=== PATIENT | male | born 1995 | race African-American/Black ===

== ENCOUNTER 2017-11-29 01:39 | Emergency (ER) | payer SELFPAY ==
[~2017-11-29] VITALS: Ht 167.6 cm; Wt 86.2 kg
[~2017-11-29 01:39] MED LIST: ALBUTEROL SULF8.5 GM INH; ALBUTEROL2.5 MG/3 M HHN; AMOX TR-K CLV1 EAC2 ORAL; AZITHROMYCIN250 MG ORAL; CIPRO500 MG PO; FLAGYL500 MG ORAL; GUAIFENESIN-CO118 M1 ORAL; IBUPROFEN600 MG ORAL; MUCINEX600 MG PO; NAPROSYN500 M1 ORAL; ONDANSETRON ODT4 MG ORAL; PHENERGAN6.25 MG/5 ORAL; PREDNISONE20 MG ORAL; PREDNISONE50 MG ORAL; PROMETHAZINE-C118 M1 ORAL; ROBITUSSIN DM5 ML GT; TRAZODONE HCL50 MG ORAL; ZITHROMAX250 MG ORAL; ZYRTEC10 MG ORAL
[2017-11-29] MEDS ORDERED: CLOTRIMAZOLE15 GM TOPIC (02:00)
--- NOTE | 2017-11-29 02:01 | Emergency Room Report ---
History of Present Illness General Chief Complaint: Lower Extremity Injury Source: Patient Present Illness HPI Is a 21-year-old male with no past medical history. He presents with chief complaint of bilateral feet pain but mostly left side. He said this attributed to his foot fungus. He said he noticed about 4 weeks now. 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 Denies any fever chills but no nausea no vomiting. Nothing made it better or worse. Has not seen his doctor for this. Denies any other complaint. Pain is 7 out of 10. Allergies: Coded Allergies: No Known Allergies (Unverified , 12/09/12) Patient History Past Medical History: see triage record, old chart reviewed Past Surgical History: none Pertinent Family History: none Social History: Denies: smoking Immunizations: other Reviewed Nursing Documentation: PMH: Agreed; PSxH: Agreed Nursing Documentation-PMH Hx Asthma: Yes Review of Systems Eye: Denies: eye pain, blurred vision ENT: Denies: ear pain, nose congestion, throat swelling Respiratory: Denies: cough, shortness of breath Cardiovascular: Denies: chest pain, palpitations Gastrointestinal: Denies: abdominal pain, diarrhea, nausea, vomiting Musculoskeletal: Denies: back pain, joint pain Skin: Denies: rash Neurological: Denies: headache, numbness Endocrine: Denies: increased thirst, increased urine Hematologic/Lymphatic: Denies: easy bruising All Other Systems: negative except mentioned in HPI Physical Exam Vital Signs Date Time Temp Pulse Resp B/P (MAP) Pulse Ox O2 Delivery O2 Flow Rate FiO2 11/29/17 01:42 98.5 97 18 131/89 94 Room Air 98.4 vitals normal Sp02 EP Interpretation: reviewed, normal General Appearance: well appearing, no apparent distress, alert Head: normocephalic, atraumatic Eyes: bilateral eye PERRL, bilateral eye EOMI ENT: hearing grossly normal, normal pharynx Neck: full range of motion, supple, no meningismus Respiratory: chest non-tender, lungs clear, normal breath sounds Cardiovascular #1: regular rate, rhythm, no murmur Gastrointestinal: normal bowel sounds, non tender, no mass, no organomegaly, no bruit, non-distended Musculoskeletal: back normal, gait/station normal, normal range of motion, other - Bilateral feet with onychomycosis of the nails. He also has flaky skin with hyperkeratosis secondary to constant trauma and poor fitting shoes. No blistering. Psychiatric: mood/affect normal Skin: warm/dry Medical Decision Making Diagnostic Impression: Primary Impression: Onychomycosis ER Course Patient with me, courses. Explained to the patient that this treatment require months to years. He need to see his primary care doctor because he'll probably need oral medication and blood work for monitoring. No evidence of any bacterial infection. We'll discharge home. Last Vital Signs Date Time Temp Pulse Resp B/P (MAP) Pulse Ox O2 Delivery O2 Flow Rate FiO2 11/29/17 01:42 98.5 97 18 131/89 94 Room Air 98.4 Status: unchanged Disposition: HOME, SELF-CARE Condition: Stable Scripts Clotrimazole* (LOTRIMIN*) 15 Gm Cream..g. 1 APPLIC TOPIC TWICE A DAY, #60 GM Prov: Steven Carreno MD 11/29/17 Additional Instructions: Follow-up with your doctor in a week. Now fungus usually take months to years to treat. You may need oral medication. Follow-up with your DrOctavio for this. Return of worse. Steven Carreno MD Nov 29, 2017 02:01
[2017-11-29 02:12] VITALS: BP 131/89
== END 2017-11-29 02:13 | disposition home or self-care (01) ==
LOC: EMR 02:00
DX: B35.1 Tinea unguium (principal); J45.909 Unspecified asthma, uncomplicated
CPT/HCPCS: 99282

== ENCOUNTER 2017-12-11 01:11 | Emergency (ER) | payer MEDICAID ==
[~2017-12-11] VITALS: Ht 167.6 cm; Wt 81.6 kg
[~2017-12-11 01:11] MED LIST changes: +CLOTRIMAZOLE15 GM TOPIC
[2017-12-11 01:25] VITALS: BP 129/71
[2017-12-11] MEDS ORDERED: Albuterol/Ipratropium 3ml neb HHN ONE (01:30)
[2017-12-11] MEDS ORDERED: PSEUDOEPHEDRINE60 MG PO (01:34)
[2017-12-11] MEDS ORDERED: PREDNISONE20 MG ORAL (01:34)
[2017-12-11] MEDS ORDERED: ALBUTEROL SULF8.5 GM INH (01:34)
--- NOTE | 2017-12-11 01:34 | Emergency Room Report ---
History of Present Illness General Chief Complaint: Flu Like Symptoms Source: Patient Present Illness HPI Is a 22-year-old male with a history of asthma. He presents with chief complaint of cough and congestion for last 2 days. No relief with his never lies machine. No relief with DayQuil. No fever chills but no nausea no vomiting. Cough is productive of phlegm. Worse with exertion. No other complaint Allergies: Coded Allergies: No Known Allergies (Unverified , 12/09/12) Patient History Past Medical History: see triage record, old chart reviewed, asthma Past Surgical History: other Pertinent Family History: none Social History: Denies: smoking Immunizations: other Reviewed Nursing Documentation: PMH: Agreed; PSxH: Agreed Nursing Documentation-PMH Past Medical History: No History, Except For Hx Asthma: Yes Review of Systems Eye: Denies: eye pain, blurred vision ENT: Reports: nose congestion; Denies: ear pain, throat swelling Respiratory: Reports: cough, shortness of breath, sputum Cardiovascular: Denies: chest pain, palpitations Gastrointestinal: Denies: abdominal pain, diarrhea, nausea, vomiting Musculoskeletal: Denies: back pain, joint pain Skin: Denies: rash Neurological: Denies: headache, numbness Endocrine: Denies: increased thirst, increased urine Hematologic/Lymphatic: Denies: easy bruising All Other Systems: negative except mentioned in HPI Physical Exam Vital Signs Date Time Temp Pulse Resp B/P (MAP) Pulse Ox O2 Delivery O2 Flow Rate FiO2 12/11/17 01:13 97.9 100 20 140/80 95 Room Air vitals normal Sp02 EP Interpretation: reviewed, normal General Appearance: well appearing, no apparent distress, alert Head: normocephalic, atraumatic Eyes: bilateral eye PERRL, bilateral eye EOMI ENT: hearing grossly normal, normal pharynx Neck: full range of motion, supple, no meningismus Respiratory: chest non-tender, wheezing - slight Cardiovascular #1: regular rate, rhythm, no murmur Gastrointestinal: normal bowel sounds, non tender, no mass, no organomegaly, no bruit, non-distended Musculoskeletal: back normal, gait/station normal, normal range of motion Psychiatric: mood/affect normal Skin: warm/dry Medical Decision Making Diagnostic Impression: Primary Impression: Acute bronchitis Qualified Codes: J20.9 - Acute bronchitis, unspecified Additional Impression: Asthma exacerbation Qualified Codes: J45.21 - Mild intermittent asthma with (acute) exacerbation ER Course Patient present with a viral illness with exacerbation of asthma. Better after breathing treatment. We'll discharge home. No need for antibiotics. Last Vital Signs Date Time Temp Pulse Resp B/P (MAP) Pulse Ox O2 Delivery O2 Flow Rate FiO2 12/11/17 01:13 97.9 100 20 140/80 95 Room Air Status: improved Disposition: HOME, SELF-CARE Condition: Stable Scripts Pseudoephedrine Hcl* (SUDAFED*) 60 Mg Tablet 60 MG PO Q6H, #30 TAB Prov: Steven Carreno MD 12/11/17 Prednisone* (PREDNISONE*) 20 Mg Tablet 60 MG ORAL DAILY, #12 TAB Prov: Steven Carreno MD 12/11/17 Albuterol Sulfate* (ALBUTEROL SULFATE MDI*) 8.5 Gm Hfa.aer.ad 2 PUFF INH Q4H PRN for cough/wheezing, #1 EA 0 Refills Prov: Steven Carreno MD 12/11/17 Additional Instructions: Follow-up with doctor in 7 days. Return if symptom worsen. Steven Carreno MD Dec 11, 2017 01:34
[2017-12-11 01:54] VITALS: BP 132/82
== END 2017-12-11 02:01 | disposition home or self-care (01) ==
LOC: EMR 01:43
DX: J20.9 Acute bronchitis, unspecified (principal); J45.901 Unspecified asthma with (acute) exacerbation
CPT/HCPCS: 94640; 94664; 99284; J7512; J7620

== ENCOUNTER 2018-09-11 05:36 | Emergency (ER) | payer MEDICAID ==
[~2018-09-11] VITALS: Ht 165.1 cm; Wt 97.5 kg
[~2018-09-11 05:36] MED LIST changes: +PSEUDOEPHEDRINE60 MG PO
[2018-09-11 05:57] VITALS: BP 113/55
--- NOTE | 2018-09-11 06:01 | NUR ---
ER Nurse Note: Pt came from work c/o LT foot pain. Pt stated he noticed blisters on his foot eariler this week and went to a clinic; prescribed a cream (unknown name) and wrapped with marli bandage. Pt ambulated with limp d/t 9/10 pain on LT foot; wound is yellow, pink, brown, red, and white in color. No drainage present; swelling. Will continue to montior.
--- NOTE | 2018-09-11 06:28 | Emergency Room Report ---
History of Present Illness General Chief Complaint: Skin Rash/Abscess Source: Patient Present Illness HPI HPI: 22-year-old male with history of asthma presents for evaluation of left foot wound. Patient noticed pain and swelling over the plantar aspect of his left foot 2 days ago when he awoke. He spends a lot of time on his feet for his job and notes worsening pain. He started to see the skin peeling off over the past 2 days. He denies any purulent drainage. Denies fevers, history of diabetes, any trauma or puncture wound. Denies vomiting, diarrhea, other rash. Denies pain or limitation of range of motion of the ankle knee or hip. PMH: Asthma PSH: Denies Allergies: Denies Social Hx: Denies smoking, alcohol abuse or drug use Allergies: Coded Allergies: No Known Allergies (Unverified , 12/09/12) Nursing Documentation-PMH Past Medical History: No History, Except For Hx Asthma: Yes Review of Systems All Other Systems: negative except mentioned in HPI Physical Exam Vital Signs Date Time Temp Pulse Resp B/P (MAP) Pulse Ox O2 Delivery O2 Flow Rate FiO2 09/11/18 05:44 98.1 79 18 113/55 (74) 97 Room Air General: Awake and alert, no acute distress HEENT: NC/AT. EOMI. Resp: Normal work of breathing Skin: Mild edema and surrounding erythema over the plantar aspect of the left foot. Tender to palpation. No fluctuance. MSK: Normal tone and bulk. Moving all extremities. No obvious deformity. Full range of motion in the ankles bilaterally. Neuro: Awake and alert. Mentating appropriately. Sensation is intact to light touch over the dermatomes of the lower extremities. Medical Decision Making ER Course 22-year-old male presents for evaluation of 2 days worsening foot pain with obvious foot wound. Differential includes but is not limited to occult puncture injury, foot ulcer, tinea pedis, cellulitis, plantar fasciitis. Most concerning would be an occult puncture injury with retained foreign body. Will obtain an x-ray to rule this out. The patient will require antibiotics as it does appear to be a cellulitis over the plantar aspect. He is otherwise not showing any signs of systemic illness and is in his usual state of health. Other X-Ray Diagnostic Results Other X-Ray Diagnostic Results : X-Ray ordered: Left foot # of Views/Limited Vs Complete: 3 View Indication: Pain EP Interpretation: Yes Interpretation: no dislocation, no fractures Impression: Other - No subcutaneous gas, no evidence of osteomyelitis, no fracture appreciated. Some soft tissue swelling. Electronically Signed by: Electronically signed by Dr. Oh Thakkar Reevaluation Time: 06:46 Last Vital Signs Date Time Temp Pulse Resp B/P (MAP) Pulse Ox O2 Delivery O2 Flow Rate FiO2 09/11/18 05:57 98.1 78 18 113/55 97 Room Air Reevaluation Impression X-ray showed some soft tissue swelling but no evidence of retained foreign body. Patient will be covered for Pseudomonas as well due to possible occult puncture injury. Gave strict return precautions if his condition fails to improve over the next day or if it suddenly worsens. He understands and agrees with this treatment plan will be discharged home. He was instructed to stay off his feet at work as much as possible and perform light duties only. List of primary care providers was included in his discharge paperwork. Please note that this report is being documented using [employer] technology. This can lead to erroneous entry secondary to incorrect interpretation by the dictating instrument. Disposition: HOME, SELF-CARE Condition: Stable Scripts Ciprofloxacin Hcl (CIPROFLOXACIN HCL*) 750 Mg Tablet 750 MG ORAL BID for 7 Days, #14 TAB 0 Refills Prov: Oh Thakkar MD 09/11/18 Oh Thakkar MD Sep 11, 2018 06:28
[2018-09-11] MEDS ORDERED: CIPROFLOXACIN750 MG ORAL (06:53)
[2018-09-11 07:02] VITALS: BP 113/55
--- NOTE | 2018-09-11 07:02 | NUR ---
ER Nurse Note: Pt seen, treated, medically cleared for discharge by ERMD. Discharge instuctions and prescriptions given with repeat verbalization by pt. Emphasized to follow up with primay care provider; take whole course of medication. Explained each medication. All orders completed per ERMD orders. Pt a&ox4, VSS, no signs of distress. ID band removed. All questions answered per pt's questions. Pt left with all belongings, left with own transportation.
--- NOTE | 2018-09-11 07:16 | Diagnostic Imaging Report ---
EXAM: XR Left Foot Complete, 3 or More Views. CLINICAL HISTORY: INJ TECHNIQUE: Frontal, lateral and oblique views of the left foot. COMPARISON: No relevant prior studies available. FINDINGS: Bones: Unremarkable. No acute fracture. Joints: Unremarkable. No dislocation. Soft tissues: Mild soft tissue swelling of the forefoot. No radiopaque foreign body. IMPRESSION: No evidence of fracture or dislocation.
== END 2018-09-11 07:02 | disposition home or self-care (01) ==
LOC: EMR 06:35
DX: M25.572 Pain in left ankle and joints of left foot (principal); R22.42 Localized swelling, mass and lump, left lower limb
CPT/HCPCS: 99283